=== PATIENT | male | born 1990 | race Two or more races ===

== ENCOUNTER 2023-09-01 18:05 | Emergency (ER) | payer OTHER ==
[~2023-09-01] VITALS: Ht 180.3 cm; Wt 138.4 kg
[2023-09-01 18:09] VITALS: TEMP 98.4
[2023-09-01 19:00] VITALS: BP 118/76; PULSE 71; RESP 17
== END 2023-09-01 20:03 | disposition home or self-care (01) ==
LOC: EMS 18:07
DX: M79.601 Pain in right arm (principal)
CPT/HCPCS: 99281; Z7502